=== PATIENT | female | born 1950 | race Caucasian/White ===

== ENCOUNTER 2016-04-26 09:33 | Outpatient (CLI) | payer MEDICARE, MEDICAID ==
--- NOTE | 2016-04-26 10:55 | NUR ---
Patient arrived via wheelchair for replacement of left upper arm PICC line. On arrival, PICC line dressing intact with 5 cm of PICC from site. Patient states "has been like that since they put it in." Some redness at site, patient complaining of some discomfort at site and along vein. Order for replacecment of PICC line at [facility]. Will contact Dr. Paige for clarification of facility for replacement and discuss replacing PICC with midline. Patietnt to complete MARK 05/09/16. Korin Collins RN
[2016-04-26] MEDS ORDERED: ASCORBIC ACID500 MG PO (11:44)
[2016-04-26] MEDS ORDERED: LASIX40 MG PO (11:44)
[2016-04-26] MEDS ORDERED: MULTIPLE VITAMI1 TA1 PO (11:46)
[2016-04-26] MEDS ORDERED: CLARITIN 10 MG10 MG PO (11:46)
[2016-04-26] MEDS ORDERED: ORAZINC220 ( 50 ) PO (11:46)
[2016-04-26] MEDS ORDERED: FERROUS SULFAT325 MG PO (11:47)
[2016-04-26] MEDS ORDERED: FLORANEX / LACT1 TAB PO (11:47)
[2016-04-26] MEDS ORDERED: APAP325 MG PO (11:48)
[2016-04-26] MEDS ORDERED: SCOT-TUSSI10 MG/5 ML PO (11:48)
[2016-04-26] MEDS ORDERED: HUMULIN R100 U/ML SC (11:49)
[2016-04-26] MEDS ORDERED: ZOFRAN4 MG PO (11:49)
[2016-04-26] MEDS ORDERED: GENASYME80 MG PO (11:49)
[2016-04-26] MEDS ORDERED: GLUCOPHAGE500 MG PO (11:50)
[2016-04-26] MEDS ORDERED: VANCOMYCIN 750750 MG IV (11:50)
[2016-04-26] MEDS ORDERED: DURAGESIC1 PATCH .7 TRANSDERM (11:51)
[2016-04-26] MEDS ORDERED: KRISTALOSE20 G/PKT PO (11:51)
[2016-04-26] MEDS ORDERED: HYDROCODONE-APA1 TAB PO (11:51)
[2016-04-26] MEDS ORDERED: LUMIGAN 0.01%2.5 ML (11:54)
[2016-04-26] MEDS ORDERED: UROCIT-K10 MEQ PO (11:54)
[2016-04-26] MEDS ORDERED: BIMATOPROST2.5 ML EACH EYE (11:55)
[2016-04-26] MEDS ORDERED: LANTUS INSULIN10 ML SC ×2 (11:56)
== END 2016-04-26 12:10 ==
LOC: D.OPS 09:33
DX: T85.848A Pain due to other internal prosthetic devices, implants and grafts, initial encounter (principal)

== ENCOUNTER → 2016-05-26 09:52 | Outpatient (CLI) | payer MEDICARE ==
[~2016-05-26 09:52] MED LIST: APAP325 MG PO; ASCORBIC ACID500 MG PO; BIMATOPROST2.5 ML EACH EYE; CLARITIN 10 MG10 MG PO; DURAGESIC1 PATCH .7 TRANSDERM; FERROUS SULFAT325 MG PO; FLORANEX / LACT1 TAB PO; GENASYME80 MG PO; GLUCOPHAGE500 MG PO; HUMULIN R100 U/ML SC; HYDROCODONE-APA1 TAB PO; KRISTALOSE20 G/PKT PO; LANTUS INSULIN10 ML SC; LASIX40 MG PO; LUMIGAN 0.01%2.5 ML; MULTIPLE VITAMI1 TA1 PO; ORAZINC220 ( 50 ) PO; SCOT-TUSSI10 MG/5 ML PO; UROCIT-K10 MEQ PO; VANCOMYCIN 750750 MG IV; ZOFRAN4 MG PO
== END | disposition home or self-care (01) ==
LOC: D.US 05-25 16:00
DX: M79.662 Pain in left lower leg (principal); R22.42 Localized swelling, mass and lump, left lower limb

== ENCOUNTER 2017-07-03 05:16 | Inpatient (IN) | payer MEDICARE ==
[~2017-07-03] VITALS: Ht 162.6 cm; Wt 128.4 kg
--- NOTE | ~2017-07-03 | EC ---
PATIENT:CHELLY DALEY DATE OF SERVICE: 07/03/17 SEX: F MEDICAL RECORD: [id number] DATE OF : 52 LOCATION:D.M2 D.212 AGE OF PATIENT: 66 ADMISSION DATE: 07/03/17 REFERRING PHYSICIAN: INTERPRETING PHYSICIAN: OLGA LEE MD ECHOCARDIOGRAM REPORT ECHO CHARGES 4 ECHO COMPLETE Date: 07/03 CLINICAL DIAGNOSIS: CHF ECHOCARDIOGRAPHIC MEASUREMENTS (adult normal given) AC root (d.<3.7cm) 3.1 cm LV Septum d (<1.2 cm> 1.1 cm Valve Excursion 1.9 cm LV Septum (systole) 1.5 cm Left Atria (s.<4.0cm> 3.9 cm LVPW d(<1.2cm) 1.2 cm RV (d.<2.3cm) 2.9 cm LVPW (sytole) 1.7 cm LV diastole(<5.6CM) 7.1 cm MV E-F(>70mm/sec) cm LV systole 5.2 cm LVOT Diameter 2.0 cm MV exc.(>10mm) cm Est.ejection fraction (50-75%) % DOPPLER: LVIT cm/sec A 193 cm/sec E 152 cm/sec LA cm/sec RVSP 36.0 mmHg LVOT 109 cm/sec AOP1/2T m/s Asc. Ao 183 cm/sec RVOT 92.0 cm/sec RA cm/sec PA 111 cm/sec AV Gradient Peak 13.3 mmHg AV Mean 6.9 mmHg AV Area 1.8 cm MV Gradient Peak 16.0 mmHg MV Mean 4.0 mmHg MV Area cm COMMENTS: [employer] Stock Clerk: 1 INDRA WHEATFIELD Pin Inserter Regulator: 4 Dr. Lee TAPE# PACS Pericardial Effusion N DATE OF SERVICE: PROCEDURE: Transthoracic echocardiogram. FINDINGS: 1. Left ventricle shows regional wall motion abnormalities with anterior septal hypokinesis. 2. Mildly distally dyskinetic. Overall, ejection fraction 35%. 3. The mitral valve has moderate mitral regurgitation. 4. The left atrium upper limits of normal at 3.9 cm. ECHOCARDIOGRAM REPORT [id number] CHELLY DALEY 5. The aortic valve is normal. 6. The tricuspid valve has mild tricuspid regurgitation. 7. The right atrium is normal size, normal function. 8. The right ventricle is normal size, normal function. 9. The pulmonic valve is not well visualized, otherwise is normal. 10. The pericardium is normal. CONCLUSIONS: The patient has evidence of mild hypertensive heart disease and also regional wall motion abnormality suggestive of ischemic heart disease and ischemic cardiomyopathy with ejection fraction of 35%. TRANSINT:[id number] Voice Confirmation ID: [id number] DOCUMENT ID: [id number] OLGA LEE MD at 0942 CC: [id number] DICTATION DATE: 07/04/17 0746 BANJO REPAIRER: 07/04/17 1205 ADM IN [facility] [address] [id number]
--- NOTE | ~2017-07-03 | HEMODYNAMI ---
PATIENT:CHELLY DALEY MEDICAL RECORD: [id number] : 52 LOCATION:[facility] D.[address] [facility] [id number] ADMISSION DATE: 07/03/17 Generatedon:07/05/201711:25 Patient name: CHELLY DALEY Patient #: [id number] SSN: : 1950 Date of study: 07/05/2017 Page: Of Hemodynamic Procedure Report Patient Data Patient Demographics Procedure consent was obtained First Name: CHELLY Gender: Female Last Name: EDI : 1950 [facility] Initial: CAMACHO Age: 66 year(s) Patient #: [id number] Race: Unknown Additional ID: [id number] Contact details Address: [address] [address] State: [place] City: [place] Zip code: [address] Past Medical History Allergies Allergen Reaction Date Comments Reported Other allergy 07/04/2017 KOLE Inhibitors, PCN, Insulin Other allergy 07/05/2017 KOLE Inhinitors, PCN, Insulin detmir, Insulin aspart. Admission Admission Data Admission Date: 07/03/2017 Admission Time: 14:00 Admit Source: Other Room #: D.2121 Lab Results Lab Result Date: 07/04/2017 Lab Result Time: 6:25 Biochemistry Name Units Result Min Max BUN mg/dl 39 --(----)-* 7 18 Creatinine mg/dl 2.8 --(----)-* 0.6 1.3 CBC Name Units Result Min Max Hematocrit % 23.8 *-(----)-- 42 54 Hemoglobin g/dl 8 *-(----)-- 13.5 17.5 Procedure Procedure Types Cath Procedure Diagnostic Procedure Sedation Charges Moderate Sedation up to 45 minutes PCI Procedure Coronary Stent Coronary Stent Initial x2 Procedure Description Procedure Date Procedure Date: 07/05/2017 Procedure Start Time: 9:57 Procedure End Time: 11:12 Procedure Staff Name Function Taz Lee MD Performing Physician Oscar Baker RT Monitor Ramirez Mandel RT Scrub El De Dios RN Nurse Brandie Logan RT Scrub Procedure Data Cath Procedure Fluoroscopy Diagnostic fluoroscopy Total fluoroscopy Time: time: 22.5 min 22.5 min Diagnostic fluoroscopy Total fluoroscopy dose: dose: 2309 mGy 2309 mGy Contrast Material Contrast Material Type Amount (ml) Isovue 300 101 Entry Location Entry Primary Successful Side Size Upsize Upsize Entry Closure Succes sful Closure Location (Fr) 1 (Fr) 2 (Fr) Remarks Device Remarks Femoral Right 4 Fr Sheath vein sutured in place Femoral Right 6 Fr Exoseal artery Short Estimated blood loss: 10 ml Procedure Complications No complications Procedure Medications Medication Administration Route Dosage Oxygen etCO2 Nasal cannula 2 l/min Heparin Flush Bag added to field 2 bags (1000units/500ml NS) 0.9% NaCl I.V. 100 ml/hr Fentanyl I.V. 50 mcg Versed I.V. 1 mg Heparin Bolus I.V. 8000 units Fentanyl I.V. 50 mcg Heparin Bolus I.V. 2000 units Heparin Bolus I.V. 2000 units Heparin Bolus I.V. 2000 units Versed I.V. 1 mg Plavix P.O. 300 mg Hemodynamics Rest HGB: 8 (g/dl) Heart Rate: 81 (bpm) Snapshots Pre Cath Intra NCS Post Cath Vital Signs Time Heart Resp SPO2 etCO2 NIBP (mmHg) Rhythm Pain Sedation Rate (ipm) (%) (mmHg) Status Level (bpm) 9:55:38 81 19 99 17.3 143/70(115) NSR 0 (11) 10(A) , No pain 10:00:35 76 17 98 34.6 137/69(113) NSR 0 (11) 10(A) , No pain 10:05:28 77 17 98 29.3 138/70(105) NSR 0 (11) 10(A) , No pain 10:10:23 77 16 96 33.1 129/60(104) NSR 0 (11) 9(A) , No pain 10:15:14 77 17 94 33.1 136/66(104) NSR 0 (11) 9(A) , No pain 10:20:07 77 18 95 31.6 131/67(108) NSR 0 (11) 9(A) , No pain 10:24:58 78 17 96 30.8 136/63(108) NSR 0 (11) 9(A) , No pain 10:29:50 77 16 96 28.6 136/68(108) NSR 0 (11) 9(A) , No pain 10:34:43 75 16 97 29.3 135/62(107) NSR 0 (11) 9(A) , No pain 10:39:36 74 16 97 33.1 131/58(106) NSR 0 (11) 9(A) , No pain 10:44:27 74 16 97 32.4 139/65(112) NSR 0 (11) 9(A) , No pain 10:49:20 74 16 97 32.4 140/60(112) NSR 0 (11) 9(A) , No pain 10:54:11 74 17 93 32.3 130/66(103) NSR 0 (11) 9(A) , No pain 10:59:04 73 16 98 32.3 138/64(113) NSR 0 (11) 9(A) , No pain 11:03:59 73 17 97 27.8 132/66(105) NSR 0 (11) 9(A) , No pain 11:08:52 73 16 98 22.5 134/69(115) NSR 0 (11) 9(A) , No pain Medications Time Medication Route Dose Verified Delivered Reason Notes Effectiveness by by 9:53:55 Oxygen etCO2 2 Taz El Per physician Nasal l/min Rosa De Dios RN cannula 9:54:03 Heparin Flush added 2 Taz El used for Bag to bags Rosa De Dios RN procedure (1000units/500ml field NS) 10:04:58 0.9% NaCl I.V. 100 Taz El Per physician ml/hr Rosa De Dios RN, MD 10:05:12 Fentanyl I.V. 50 Taz El for sedation mcg Rosa De Dios RN, MD 10:05:20 Versed I.V. 1 mg Taz El for sedation oRsa De Dios RN, MD 10:07:29 Heparin Bolus I.V. 8000 Taz El for units Rosa De Dios RN anticoagulation 10:10:39 Versed I.V. 1 mg Taz El for sedation Rosa De Dios RN, MD 10:10:40 Fentanyl I.V. 50 Taz El for sedation mcg Rosa De Dios RN, MD 10:26:49 Heparin Bolus I.V. 2000 Taz Gallegos for units Rosa De Dios RN anticoagulation 10:38:40 Heparin Bolus I.V. 2000 Taz Gallegos for units Rosa De Dios RN anticoagulation 10:59:35 Heparin Bolus I.V. 2000 Taz Gallegos for units Rosa De Dios RN anticoagulation 11:15:20 Plavix P.O. 300 Taz El for mg Rosa De Dios RN antiplatelet MD therapy Procedure Log Time Note 8:58:33 Informed consent obtained and on chart 8:58:36 Admit Source: Other 8:58:53 Diagnostic Cath status Elective 8:58:56 Ramirez Mandel RT(R) (CV) sent for patient. Start room use. 8:58:57 Time tracking: Regular hours (M-F 7:00 - 5:00) 8:59:00 Plan of Care:Hemodynamics will remain stable., Cardiac rhythm will remain stable., Comfort level will be maintained., Respiratory function will remain adequate., Patient/ family verbilizes understanding of procedure., Procedure tolerated without complication., Recovers from procedure without complications.. 8:59:15 H&P Date Dictated: 07/03/2017 H&P Addendum completed by physician on day of procedure. (MUST COMPLETE FOR ALL OUTPATIENTS). 9:32:07 Patient received from PCU to CCL 1 Alert and oriented. Tansferred to table in Supine position. 9:32:08 Warm blankets applied, and pete hugger turned on for patient comfort. 9:32:08 Correct patient and procedure confirmed by team. 9:32:10 ECG and BP/O2 sat monitors applied to patient. 9:32:10 Full Disclosure recording started 9:35:06 IV right antecubital D/C'd due to infiltration. 9:35:57 IV CATHETER 22g opened to sterile field. 9:36:57 Pre-procedure instructions explained to patient. 9:36:58 Pre-op teaching completed and patient verbalized understanding. 9:36:59 Family in patients room. 9:37:01 Patient NPO since Midnight. 9:37:42 Patient allergic to Other allergyACE Inhinitors, PCN, Insulin detmir, Insulin aspart. 9:47:55 Is the patient allergic to Iodine/contrast media? No. 9:47:57 Is patient on blood thinner?Yes 9:48:00 ACC The patient was administered the following blood thiners within the last 24 hours: ACCPlavix 9:48:01 Patient diabetic? Yes. 9:48:02 If diabetic: On Metformin? No 9:48:05 Previous problem with sedation/anesthesia? No ? 9:48:05 Snore? Yes 9:48:06 Sleep apnea? Yes 9:48:07 Deviated septum? No 9:48:07 Opens mouth fully? Yes 9:48:08 Sticks out tongue? Yes 9:48:10 Airway obstruction? No ? 9:48:11 Dentures? No ? 9:48:14 Pre procedure: right dorsailis pedis pulse 2+ Normal; easily identifiable; not easily obliterated 9:48:17 Lab results completed and on chart. 9:48:19 Right groin area was prepped with chlora-prep and draped in sterile fashion 9:48:24 Alarms reviewed by R. N. 9:48:24 Sharps counted by scrub and verified by R.N. 9:53:55 Oxygen 2 l/min etCO2 Nasal cannula was administered by El De Dios RN; Per physician; 9:54:03 Heparin Flush Bag (1000units/500ml NS) 2 bags added to field was administered by El De Dios RN; used for procedure; 9:54:30 Vital chart was started 9:54:31 Baseline sample Acquired. 9:54:34 Rhythm: sinus rhythm 9:54:45 Physician arrived 9:54:46 --------ALL STOP TIME OUT------ 9:54:46 Final Timeout: patient, procedure, and site verified with staff and physician. All members of the team are in agreement. 9:54:48 Right groin site verified by team. 9:54:50 Physical assessment completed. ASA score P 2 - A patient with mild systemic disease as per Taz Lee MD. 9:54:55 Sedation plan: IV Moderate Sedation Medication:Versed, Fentanyl 9:56:[address] Carrington (962039) opened to sterile field. 9:56:24 MICROPUNCTURE 4FR Cook ([id number]) opened to sterile field. 9:56:27 Tegaderm 4 x 4 (1626W) opened to sterile field. 9:56:28 ACIST Syringe (76648) opened to sterile field. 9:56:28 Bag Decanter (2001S) opened to sterile field. 9:56:29 Medline Cath Pack ([id number]) opened to sterile field. 9:56:30 DIAGNOSTIC WIRE .035 260cm J wire (135340) opened to sterile field. 9:56:32 ACIST Hand Control (64673) opened to sterile field. 9:56:32 ACIST Manifold (20093) opened to sterile field. 9:56:47 SHEATH Prelude 6Fr 0.035 (FQI-2R-66-035) opened to sterile field. 9:56:48 INFLATOR Merit BasixCompak (RW5943) opened to sterile field. 9:56:53 BMW 190cm [place] 2 J wire ([id number]) opened to sterile field. 9:57:01 COPILOT Valve Control (0765711) opened to sterile field. 9:57:43 Unable to gain IV access. Dr. Lee will gain femoral vein access for procedure. 9:57:47 Procedure started. 9:57:57 Local anesthetic to right femoral vein with Lidocaine 2% by Taz Lee MD.INITIAL ACCESS ONLY 9:57:59 Access obtained with 4Fr micropunture. 9:58:13 A 4 Fr sheath was inserted into the Right Femoral vein 9:58:45 Zero performed for pressure channel P1 9:59:45 IV Extension Set opened to sterile field. 9:59:52 Access obtained with 4Fr micropunture. 9:59:59 A 6 Fr Short sheath was inserted into the Right Femoral artery 10:04:58 0.9% NaCl 100 ml/hr I.V. was administered by El De Dios RN; Per physician; 10:05:12 Fentanyl 50 mcg I.V. was administered by El De Dios RN; for sedation; 10:05:20 Versed 1 mg I.V. was administered by El De Dios RN; for sedation; 10:05:41 GUIDE 6FR ART 4.0 catheter ([id number]) opened to sterile field. 10:05:57 6 Fr ART4 guide catheter was inserted over the wire 10:07:29 Heparin Bolus 8000 units I.V. was administered by El De Dios RN; for anticoagulation; 10:07:40 BMW wire advanced. 10:07:41 Wire advanced across lesion. 10:10:32 Place stent Inflation Number: 1 A UDAY RX 2.5 x 26 stent ([id number]) was prepped and advanced across the Dist RCA. The stent was deployed at 18 YASEMIN for 0:10 (min:sec). 10:10:39 Versed 1 mg I.V. was administered by El De Dios RN; for sedation; 10:10:40 Fentanyl 50 mcg I.V. was administered by El eD Dios RN; for sedation; 10:11:27 Stent catheter was removed intact over wire. 10:11:29 Wire removed. 10:11:59 Guide catheter removed. 10:12:20 GUIDE 6FR XBLAD 4.0 catheter ([id number]) opened to sterile field. 10:12:30 6 Fr XBLAD 4 guide catheter was inserted over the wire 10:14:32 BMW wire advanced. 10:14:49 Wire removed. unable to cross lesion. 10:15:09 FIELDER XT J 300cm guide wire ([id number]) opened to sterile field. 10:15:41 FIELDER XT J wire advanced. 10:18:15 Wire advanced across lesion. 10:22:39 Inflate balloon Inflation number: 1 A EUPHORA 1.5 x 20 Balloon ([id number]) was prepped and advanced across the Prox LAD, then inflated to 14 YASEMIN for 0:10 (min:sec). 10:23:36 Balloon removed over the wire. 10:26:49 Heparin Bolus 2000 units I.V. was administered by El De Dios RN; for anticoagulation; 10:27:39 Inflate balloon Inflation number: 2 A EUPHORA 2.0 x 20 Balloon ([id number]) was prepped and advanced across the Prox LAD, then inflated to 15 YASEMIN for 0:10 (min:sec). 10:28:14 Balloon removed over the wire. 10:33:21 The NC EUPHORA 2.5 x 12 balloon ([id number]) was advanced and then removed because of failure to cross lesion 10:34:23 CHOICE PT Extra Support J 300cm guide wire ([id number]) opened to sterile field. 10:35:59 EMERGE BALOON INSERTED OVER THE WIRE, FIELDER WIRE REMOVED. 10:38:40 Heparin Bolus 2000 units I.V. was administered by El De Dios RN; for anticoagulation; 10:41:13 IRON MAN wire advanced. 10:41:16 Wire advanced across lesion. 10:41:54 The EMERGE OTW 1.5 x 20 balloon ([id number]) was advanced and then removed because in body, not inflated 10:46:09 Inflate balloon Inflation number: 3 A EMERGE OTW 2.0 x 20 balloon ([id number]) was prepped and advanced across the Prox LAD, then inflated to 15 YASEMIN for 0:10 (min:sec). 10:47:02 Balloon removed over the wire. 10:51:17 Place stent Inflation Number: 4 A UDAY RX 2.0 x 12 stent ([id number]) was prepped and advanced across the Prox LAD. The stent was deployed at 20 YASEMIN for 0:10 (min:sec). 10:51:35 Inflation number: 5 The stent balloon was then re-inflated across the Prox LAD to 20 YASEMIN for 0:10 (min:sec). 10:52:06 Stent catheter was removed intact over wire. 10:54:04 Inflate balloon Inflation number: 6 A NC EUPHORA 2.5 x 12 balloon ([id number]) was prepped and advanced across the Prox LAD, then inflated to 17 YASEMIN for 0:10 (min:sec). 10:54:43 Inflation number: 7 The NC EUPHORA 2.5 x 12 balloon ([id number]) was reinflated across the Prox LAD, to 24 YASEMIN for 0:10 (min:sec). 10:55:15 Balloon removed over the wire. 10:59:35 Heparin Bolus 2000 units I.V. was administered by El De Dios RN; for anticoagulation; 11:00:46 Inflate balloon Inflation number: 8 A NC EUPHORA 3.0 x 12 balloon ([id number]) was prepped and advanced across the Prox LAD, then inflated to 18 YASEMIN for 0:10 (min:sec). 11:01:13 Balloon removed over the wire. 11:03:37 Place stent Inflation Number: 9 A UDAY RX 2.0 x 8 stent ([id number]) was prepped and advanced across the Prox LAD. The stent was deployed at 18 YASEMIN for 0:10 (min:sec). 11:04:15 Stent catheter was removed intact over wire. 11:04:20 Wire removed. 11:04:33 Guide catheter removed. 11:04:51 EXOSEAL 6Fr (EX600) opened to sterile field. 11:05:02 Sheath removed intact; hemostasis achieved with Exoseal to the Right Femoral artery. 11:05:23 Procedure ended.(Physican Out) 11:07:40 Fluoroscopy time 22.50 minutes. 11::44 Fluoroscopy dose: 2309 mGy 11:07:44 Flurop Dose total: 2309 11:07:59 Contrast amount:Isovue 300 101ml. 11:08:00 Sharps counted by scrub and verified by R.N. 11:08:02 Insertion/operative site no bleeding no hematoma. 11:08:05 Post-op/insertion site Right Femoral artery dressed using a 4 x 4 and Tegaderm. 11:08:12 Post right femoral artery:stable, soft, clean and dry 11:08:14 Post Procedure Pulses reassessed and unchanged 11:08:17 Post-procedure physical assessment completed. ASA score P 2 - A patient with mild systemic disease as per Taz Lee MD. 11:08:19 Post procedure rhythm: unchanged. 11:08:29 Estimated blood loss: 10 ml 11:08:31 Post procedure instruction explained to patient.Patient verbalizes understanding. 11:08:32 Patient needs reinforcement of post procedure teaching. 11:10:49 Procedure type changed to Cath procedure, Diagnostic procedure, Sedation Charges, Moderate Sedation up to 45 minutes, PCI procedure, Coronary Stent, Coronary Stent Initial x2 11:12:07 Procedure and supply charges have been captured, reviewed, submitted and are correct. 11:12:09 Procedure Complication : No complications 11:12:[address] to the Right Femoral vein. 11:12:41 Vital chart was stopped 11:12:42 See physician's report for complete and final results. 11:12:44 Report given to PCU. 11:12:47 Patient transfered to PCU with Stretcher. 11:12:49 Procedure ended. 11:12:49 Full Disclosure recording stopped 11:15:20 Plavix 300 mg P.O. was administered by El De Dios RN; for antiplatelet therapy; 11:24:04 FEMSTOP Gold (G36364) opened to sterile field. 11:24:08 Femstop placed over the right femoral artery at 90 mmHg. Hemostasis achieved. 11:24:27 End room use (Document Last) Intervention Summary Intervention Notes Time ActionType Lesion and Equipment Used Action# Pressure Duration Attributes 10:10:32 Place stent Dist RCA UDAY RX 2.5 x 1 18 00:10 26 stent ([id number]) 10:22:39 Inflate Prox LAD EUPHORA 1.5 x 1 14 00:10 balloon 20 Balloon ([id number]) 10:27:39 Inflate Prox LAD EUPHORA 2.0 x 2 15 00:10 balloon 20 Balloon ([id number]) 10:33:21 Discard NC EUPHORA 2.5 Balloon x 12 balloon ([id number]) 10:41:54 Discard EMERGE OTW 1.5 Balloon x 20 balloon ([id number]) 10:46:09 Inflate Prox LAD EMERGE OTW 2.0 3 15 00:10 balloon x 20 balloon ([id number]) 10:51:17 Place stent Prox LAD UDAY RX 2.0 x 4 20 00:10 12 stent ([id number]) 10:51:35 Reinflate Prox LAD UDAY RX 2.0 x 5 20 00:10 stent 12 stent balloon ([id number]) 10:54:04 Inflate Prox LAD NC EUPHORA 2.5 6 17 00:10 balloon x 12 balloon ([id number]) 10:54:43 Reinflate Prox LAD NC EUPHORA 2.5 7 24 00:10 balloon x 12 balloon ([id number]) 11:00:46 Inflate Prox LAD NC EUPHORA 3.0 8 18 00:10 balloon x 12 balloon ([id number]) 11:03:37 Place stent Prox LAD UDAY RX 2.0 x 9 18 00:10 8 stent ([id number]) Device Usage Item Name Manufacture Quantity Catalog Number Hospital Part Current Minimal Lot# / Charge Number Stock Stock Serial# Code IV CATHETER 22g B. [place] 1 [id number] 393002 618570 2868[address] Carrington 1 874745 255656 919065 055218 5 Carrington (103162) MICROPUNCTURE [employer] [facility] 1 T97992 902654 945708 687901 5 4FR Cook (C01209) Tegaderm 4 x 4 3M 1 1626W 380620 983111 331581 5 (1626W) ACIST Syringe Acist 1 73132 052319 573848 605823 20 (01199) Medical Systems Inc Bag Decanter Microtek 1 2001S 430714 62581 305504 5 (2001S) Medical Inc. Medline Cath Cardinal 1 [id number] 253345 62811 349994 5 Pack Health ([id number]) DIAGNOSTIC WIRE [facility] Carrington 1 032878 485393 396668 587628 30 .035 260cm J wire (281908) ACIST Hand Acist 1 76983 562160 111193 536238 5 Control (89845) Medical Systems Inc ACIST Manifold Acist 1 03057 839851 558510 774199 5 (34424) Medical Systems Inc SHEATH Prelude Merit 1 YXC-0A-05-35 083970 0098728 543396 5 6Fr 0.035 Medical (LUT-1N-37-035) INFLATOR Merit Merit 1 DT5243 339315 663759 666649 15 BasIbexis TechnologiesvaMedical Envelope Medical (ZZ1887) BMW 190cm Crawley 1 [id number] 153284 73151 587526 5 [place] 2 J Vascular wire ([id number]) COPILOT Valve Crawley 1 0216297 613680 643598 742235 5 Control Vascular (5546484) IV Extension Hospira 1 84372-39 570676 90079 335046 5 Set GUIDE 6FR ART Hurst 1 [id number] 976285 832747 510679 0 4.0 catheter Deehubs ([id number]) UDAY RX 2.5 x Medtronic 1 [id number] 789720 4388568 564784 5 [id number] 26 stent ([id number]) GUIDE 6FR XBLAD Cardinal 1 70438392 362808 155648 214618 3 4.0 catheter Eyebrid Blaze (71299867) FIELDER XT J Crawley 1 [id number] 449260 634039 354882 5 300cm guide Vascular wire ([id number]) EUPHORA 1.5 x Medtronic 1 [id number] 530882 391046 516693 5 [id number] 20 Balloon ([id number]) EUPHORA 2.0 x Medtronic 1 [id number] 376298 822535 331007 5 [id number] 20 Balloon ([id number]) NC EUPHORA 2.5 Medtronic 1 [id number] 709533 559606 142373 1 [id number] x 12 balloon ([id number]) CHOICE PT Extra Hurst 1 [id number] 891498 793204 678644 5 Support J 300cm Scientific guide wire (0643041Q3) EMERGE OTW 1.5 Hurst 1 [id number] 011568 711232 966982 5 50112713 x 20 balloon Scientific ([id number]) EMERGE OTW 2.0 Hurst 1 [id number] 904805 212125 311761 5 20420238 x 20 balloon Scientific ([id number]) UDAY RX 2.0 x Medtronic 1 [id number] 498570 6562553 439115 5 [id number] 12 stent ([id number]) NC EUPHORA 3.0 Medtronic 1 [id number] 431213 824419 652504 1 [id number] x 12 balloon ([id number]) UDAY RX 2.0 x 8 Medtronic 1 [id number] 173374 7298747 813378 5 [id number] stent ([id number]) EXOSEAL 6Fr Cardinal 1 EX600 662154 697061 952312 10 (EX600) Health FEMSTOP Gold [facility] Carrington 1 [id number] 361855 059599 267255 5 ([id number]) Signature Audit [place] Stage Time Signature Unsigned Intra-Procedure 07/05/2017 Oscar Baker 11:25:12 AM RT(R) Signatures Monitor : Oscar Baker RT Signature : Date : Time : [facility] [address] [place] [address]
--- NOTE | ~2017-07-03 | HEMODYNAMI ---
PATIENT:CHELLY DALEY MEDICAL RECORD: [id number] : 52 LOCATION:[facility] D.2121 ADMISSION DATE: 07/03/17 Generatedon:07/04/201712:48 Patient name: CHELLY DALEY Patient #: [id number] SSN: : 1950 Date of study: 07/04/2017 Page: Of Hemodynamic Procedure Report Patient Data Patient Demographics Procedure consent was obtained First Name: CHELLY Gender: Female Last Name: EDI : 1950 [facility] Initial: CAMACHO Age: 66 year(s) Patient #: [id number] Race: Unknown Additional ID: [id number] Contact details Address: [address] [address] State: [place] City: [place] Zip code: [address] Past Medical History Allergies Allergen Reaction Date Comments Reported Other allergy 07/04/2017 KOLE Inhibitors, PCN, Insulin Admission Admission Data Admission Date: 07/03/2017 Admission Time: 14:00 Room #: 2121 Lab Results Lab Result Date: 07/04/2017 Lab Result Time: 6:25 Biochemistry Name Units Result Min Max BUN mg/dl 39 --(----)-* 7 18 Creatinine mg/dl 2.8 --(----)-* 0.6 1.3 CBC Name Units Result Min Max Hematocrit % 23.8 *-(----)-- 42 54 Hemoglobin g/dl 8 *-(----)-- 13.5 17.5 Procedure Procedure Types Cath Procedure Diagnostic Procedure LHC LH w/Coronaries Sedation Charges Moderate Sedation up to 15 minutes Procedure Description Procedure Date Procedure Date: 07/04/2017 Procedure Start Time: 12:34 Procedure End Time: 12:48 Procedure Staff Name Function Taz Lee MD Performing Physician Oscar Baker RT Monitor Dave Kirby RN Nurse Brandie Logan RT Scrub Procedure Data Cath Procedure Fluoroscopy Diagnostic fluoroscopy Total fluoroscopy Time: 3.3 time: 3.3 min min Diagnostic fluoroscopy Total fluoroscopy dose: 749 dose: 749 mGy mGy Contrast Material Contrast Material Type Amount (ml) Isovue 300 49 Entry Location Entry Primary Successful Side Size Upsize Upsize Entry Closure Garcia ccessful Closure Location (Fr) 1 (Fr) 2 (Fr) Remarks Device Remarks Radial Right 6 Fr Mechanical artery Short Compression Estimated blood loss: 5 ml Diagnostic catheters Device Type Used For End Catheter Placement DIAGNOSTIC Jose Antonio 110cm Procedure 5Fr catheter ([id number]) Procedure Complications No complications Procedure Medications Medication Administration Route Dosage 0.9% NaCl I.V. 100 ml/hr Oxygen etCO2 Nasal cannula 2 l/min Heparin Flush Bag added to field 2 bags (1000units/500ml NS) Radial Cocktail added to field 1 syringe (Verapomil 2mg/Nitro 400mcg/Heparin 1500units) Versed I.V. 2 mg Fentanyl I.V. 25 mcg Radial Cocktail I.A. 1 syringe (Verapomil 2mg/Nitro 400mcg/Heparin 1500units) Hemodynamics Rest HGB: 8 (g/dl) Heart Rate: 85 (bpm) Pressure Samples Time Site Value (mmHg) Purpose Heart Use Rate(bpm) 12:38 LV 120/8,20 EDP 94 Gradients Valve Time Site Site Mean SEP/DFP Peak To Heart Use 1 2 (mmHg) (sec/min) Peak Rate (mmHg) (bpm) Aortic 12:38 LV AO 100 Snapshots Pre Cath Intra NCS Post Cath Vital Signs Time Heart Resp SPO2 etCO2 NIBP (mmHg) Rhythm Pain Sedation Rate (ipm) (%) (mmHg) Status Level (bpm) 12:12:19 85 18 97 27.8 138/69(103) NSR 0 (11) 10(A) , No pain 12:17:18 83 27 96 30 133/68(97) NSR 0 (11) 10(A) , No pain 12:22:15 86 22 96 30.8 134/66(96) NSR 0 (11) 10(A) , No pain 12:27:12 85 18 96 31.5 138/67(101) NSR 0 (11) 10(A) , No pain 12:32:09 83 17 96 31.5 139/72(115) NSR 0 (11) 10(A) , No pain 12:37:04 93 25 97 27 120/65(86) NSR 0 (11) 10(A) , No pain 12:41:57 86 26 97 28.5 127/66(96) NSR 0 (11) 10(A) , No pain 12:46:51 83 23 96 35.3 127/64(99) NSR 0 (11) 10(A) , No pain Medications Time Medication Route Dose Verified Delivered Reason Notes Effectiveness by by 12:15:24 0.9% NaCl I.V. 100 Dave Dave Per ml/hr Kofi Kirby physician RN RN 12:16:34 Oxygen etCO2 2 l/min Dave Dave Per Nasal Kofi Kirby physician cannula RN RN 12:16:45 Heparin Flush added 2 bags Dave Dave used for Bag to Lorigan Kofi procedure (1000units/500ml field RN RN NS) 12:17:11 Radial Cocktail added 1 Dave Dave used for (Verapomil to syringe Summerigan Kofi procedure 2mg/Nitro field RN RN 400mcg/Heparin 1500units) 12:26:52 Versed I.V. 2 mg Dave Dave for sedation Kofi Kirby RN RN 12:27:00 Fentanyl I.V. 25 mcg Dave Dave for sedation Kofi Kirby RN RN 12:36:13 Radial Cocktail I.A. 1 Dave Taz for (Verapomil syringe Kofi Lee MD vasodilation 2mg/Nitro RN 400mcg/Heparin 1500units) Procedure Log Time Note 11:53:49 Diagnostic Cath status Elective 11:53:50 Time tracking: Regular hours (M-F 7:00 - 5:00) 11:53:54 Plan of Care:Hemodynamics will remain stable., Cardiac rhythm will remain stable., Comfort level will be maintained., Respiratory function will remain adequate., Patient/ family verbilizes understanding of procedure., Procedure tolerated without complication., Recovers from procedure without complications.. 11:54:00 Brandie Logan RT(R) sent for patient. Start room use. 11:56:07 H&P Date Dictated: 07/03/2017 Within 30 days and on chart.. 11:56:45 Lab Result : BUN 39 mg/dl 11:56:45 Lab Result : Creatinine 2.8 mg/dl 11:56:45 Lab Result : Hemoglobin 8 g/dl 11:56:45 Lab Result : Hematocrit 23.8 % 12:01:04 Patient received from Med II to CCL 1 Alert and oriented. Tansferred to table in Supine position. 12:01:05 Warm blankets applied, and pete hugger turned on for patient comfort. 12:01:06 Correct patient and procedure confirmed by team. 12:01:08 Signed procedure consent form obtained from patient. 12:01:08 ECG and BP/O2 sat monitors applied to patient. 12:01:09 Pre-procedure instructions explained to patient. 12:01:10 Pre-op teaching completed and patient verbalized understanding. 12:01:13 Family in waiting room. 12:01:14 Patient NPO since Midnight. 12:01:34 Patient allergic to Other allergyACE Inhibitors, PCN, Insulin 12:11:07 Vital chart was started 12:15:24 0.9% NaCl 100 ml/hr I.V. was administered by Dave Kirby RN; Per physician; 12:16:34 Oxygen 2 l/min etCO2 Nasal cannula was administered by Dave Kirby RN; Per physician; 12:16:45 Heparin Flush Bag (1000units/500ml NS) 2 bags added to field was administered by Dave Kirby RN; used for procedure; 12:17:11 Radial Cocktail (Verapomil 2mg/Nitro 400mcg/Heparin 1500units) 1 syringe added to field was administered by Dave Kirby RN; used for procedure; 12:20:24 Baseline sample Acquired. 12:23:16 Rhythm: sinus rhythm 12:23:20 Full Disclosure recording started 12:23:24 Is the patient allergic to Iodine/contrast media? No. 12:23:26 Is patient on blood thinner?Yes 12:23:28 ACC The patient was administered the following blood thiners within the last 24 hours: ACCPlavix 12:23:31 Patient diabetic? Yes. 12:23:33 If diabetic: On Metformin? No 12:23:36 Previous problem with sedation/anesthesia? No + 12:23:38 Snore? No 12:23:39 Sleep apnea? No 12:23:41 Deviated septum? No 12:23:42 Opens mouth fully? Yes 12:23:43 Sticks out tongue? Yes 12:23:45 Airway obstruction? No ? 12:23:49 Dentures? No ? 12:23:53 Modified Shawn's test Ulnar < 7 seconds 12:23:55 Patient pain scale 0/10 .. 12:24:01 IV patent on arrival in right antecubital with 0.9% NaCl at [facility]. 12:24:03 Lab results completed and on chart. 12:24:06 Use device set Radial Dx or PCI 12:24:07 ACIST Syringe (34392) opened to sterile field. 12:24:08 Medline Cath Pack ([id number]) opened to sterile field. 12:24:10 ACIST Hand Control (92129) opened to sterile field. 12:24:11 ACIST Manifold (50384) opened to sterile field. 12:24:11 Tegaderm 4 x 4 (1626W) opened to sterile field. 12:24:13 Bag Decanter (2002S) opened to sterile field. 12:24:14 MBrace Wrist Support ([id number]) opened to sterile field. 12:24:17 DIAGNOSTIC WIRE .035 260cm J wire (419532) opened to sterile field. 12:24:19 SHEATH 6Fr Prelude Radial ([id number]) opened to sterile field. 12:24:26 Physician arrived 12::27 --------ALL STOP TIME OUT------ 12::27 Final Timeout: patient, procedure, and site verified with staff and physician. All members of the team are in agreement. 12:24:29 Right Radial & Right Groin site verified by team. 12:24:32 Physical assessment completed. ASA score P 2 - A patient with mild systemic disease as per Taz Lee MD. 12:24:36 Sedation plan: IV Moderate Sedation Medication:Versed, Fentanyl 12:25:56 Zero performed for pressure channel P1 12:26:04 Zero performed for pressure channel P1 12:26:52 Versed 2 mg I.V. was administered by Dave Kirby RN; for sedation; 12:27:00 Fentanyl 25 mcg I.V. was administered by Dave Kirby RN; for sedation; 12:34:45 Procedure started. 12:34:49 Local anesthetic to right radial artery with Lidocaine 2% by Taz Lee MD.INITIAL ACCESS ONLY 12:34:59 A 6 Fr Short sheath was inserted into the Right Radial artery 12:36:13 Radial Cocktail (Verapomil 2mg/Nitro 400mcg/Heparin 1500units) 1 syringe I.A. was administered by Taz Lee MD; for vasodilation; 12:36:37 A DIAGNOSTIC Jose Antonio 110cm 5Fr catheter ([id number]) was advanced over the wire and used for Procedure. 12:38:11 LV hemodynamics recorded. 12:38:13 Injector settings: Ml/sec: 12, Volume: 8, 12:38:16 LV gram done using LANIER 12:38:51 EF : 30 % 12:39:10 RCA angiography performed. 12:41:23 LCA angiography performed. 12:42:52 Catheter removed. 12:43:11 Sheath removed intact; hemostasis achieved with Mechanical Compression to the Right Radial artery. 12:43:13 Procedure ended.(Physican Out) 12:43:21 TR BAND Large ([id number]) opened to sterile field. 12:44:05 Fluoroscopy time 03.30 minutes. 12:44:09 Flurop Dose total: 749 12:44:09 Fluoroscopy dose: 749 mGy 12:45:14 Contrast amount:Isovue 300 49ml. 12:46:06 Sharps counted by scrub and verified by R.N. 12:46:08 TR band inflated with 12cc of air. 12:46:09 Insertion/operative site no bleeding no hematoma. 12:46:10 Post Procedure Pulses reassessed and unchanged 12:46:15 Post-procedure physical assessment completed. ASA score P 2 - A patient with mild systemic disease as per Taz Lee MD. 12:46:17 Post procedure rhythm: unchanged. 12:46:20 Estimated blood loss: 5 ml 12:46:21 Post procedure instruction explained to patient.Patient verbalizes understanding. 12:46:21 Patient needs reinforcement of post procedure teaching. 12:47:16 Procedure type changed to Cath procedure, Diagnostic procedure, LHC, LHC w/Coronaries, Sedation Charges, Moderate Sedation up to 15 minutes 12:48:02 Procedure and supply charges have been captured, reviewed, submitted and are correct. 12:48:08 Procedure Complication : No complications 12:48:11 Vital chart was stopped 12:48:14 See physician's report for complete and final results. 12:48:17 Report given to PCU. 12:48:19 Patient transfered to PCU with Stretcher. 12:48:25 Procedure ended. 12:48:25 Full Disclosure recording stopped 12:48:30 End room use (Document Last) Device Usage Item Name Manufacture Quantity Catalog Number Hospital Part Current M inimal Lot# / Charge Number Stock Stock Serial# Code ACIST Syringe Acist 1 55755 706980 243419 108442 2 0 (07927) [employer] Medline Cath Cardinal 1 [id number] 140332 45507 [id number] 5 Pack Health ([id number]) ACIST Hand Acist 1 75191 692906 080819 085052 5 Control (10643) [employer] ACIST Manifold Acist 1 20341 883448 689759 070341 5 (74025) [employer] Inc Tegaderm 4 x 4 3M 1 1626W 104892 610180 118653 5 (1626W) Bag Decanter Microtek 1 2002S 487343 99802 751758 5 (2002S) Medical Inc. MBrace Wrist Advanced 1 [id number] 847401 15048 931831 5 Support Vascular ([id number]) Dynamics DIAGNOSTIC WIRE [facility] [place] 1 261335 695584 008372 888853 3 0 .035 260cm J wire (472523) SHEATH 6Fr Merit 1 [id number] 021256 237100 847710 5 Prelude Radial Medical ([id number]) DIAGNOSTIC Terumo 1 40-3447 596242 199243 953372 5 Jose Antonio 110cm 5Fr catheter (533693) TR BAND Large Terumo 1 [id number] 695310 403326 713033 4 0 ([id number]) Signature Audit [place] Stage Time Signature Unsigned Intra-Procedure 07/04/2017 Oscar Baker 12:48:53 PM RT(R) Signatures Monitor : Oscar Baker RT Signature : Date : Time : [facility] [address] [facility] [place] [address]
--- NOTE | ~2017-07-03 | OP ---
PATIENT NAME: CHELLY DALEY MEDICAL RECORD: [id number] :52 LOCATION:D.M2 D.2121 ADMISSION DATE:07/03/17 SURGEON: TAZ LEE MD DATE OF OPERATION: 07/04/2017 PROCEDURE: Left heart catheterization, LV gram, coronary angiogram. SHIPPING SUPERVISOR: Taz Lee MD PROCEDURE IN DETAIL: The patient was brought to cardiac catheterization lab in stable condition. Both groins and the right wrist was sterilely prepped and draped. The patient had a 6-Khmer sheath placed in right radial artery in retrograde fashion using modified Seldinger technique. We then selectively engaged the left coronary artery, the left ventricular cavity, and the right coronary artery respectively. The procedure was then terminated successfully. FINDINGS: 1. Right coronary artery has a distal 99% stenosis, a dominant vessel. 2. The left main has mild plaquing, mild calcification. 3. The LAD is 99% stenosed, small vessel distally. 4. The first diagonal high diagonal has a 99% stenosis. 5. The circumflex has a mid 50% stenosis. The first obtuse marginal branch divides into a superior and inferior branch. The inferior branch has an ostial 80% stenosis. HEMODYNAMICS: Left ventricular ejection fraction is 35%. There is inferior apical dyskinesis and mild anterior septal hypokinesis. EDP was mildly elevated at 22 mmHg. There is no significant mitral regurgitation. There is no gradient across the aortic valve. 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 RECOMMENDATIONS: Consider coronary artery bypass grafting in this diabetic patient with an ischemic cardiomyopathy and multivessel disease. She is felt to be too high risk. It is possible, we would consider angioplasty and stenting in a multivessel fashion. TRANSINT:[id number] Voice Confirmation ID: [id number] DOCUMENT ID: [id number] TAZ LEE MD at 0942 CC: [id number] DICTATION DATE: 07/04/17 1256 RAILWAY TRACK WORKER: 07/04/17 1424 ADM IN [place] [address] [place] [address]
[2017-07-03] MEDS ORDERED: GLIPIZIDE10 MG PO (05:26)
[2017-07-03] MEDS ORDERED: MAG-OX 400 MG400 MG PO (05:26)
[2017-07-03] MEDS ORDERED: XANAX0.25 MG PO (05:27)
[2017-07-03] MEDS ORDERED: NEURONTIN 300300 MG PO (05:30)
[2017-07-03 05:38] VITALS: BP 125/94; BMI 50.8
[2017-07-03 08:32] LABS: BASOPHILS 0.2 % (0-2); EOSINOPHILS 2.6 % (0-7); HEMOGLOBIN 8.7 g/dL (12-16); IMMATURE GRANULOCYTES 0.3 % (0-5); LYMPHOCYTES 23.8 % (15-50); MCH 30.4 pg (26.0-34.0); MCHC 34.8 g/dL (31.0-37.0); MCV 87.4 fL (80.0-100.0); MEAN PLATELET VOLUME 9.6 fL (7.4-10.4); MONOCYTES 5.3 % (2-11); NEUTROPHILS 67.8 % (40-80); RBC 2.86 10x6/uL (4.00-5.40); RDW 12.8 % (11.5-14.5); WBC 6.6 10x3/uL (4.8-10.8)
[2017-07-03 08:33] LABS: PLATELET COUNT 159 10x3/uL (130-400)
[2017-07-03 09:04] LABS: ALKALINE PHOSPHATASE 94 U/L (46-116); ALT (SGPT) 16 U/L (10-68); BILIRUBIN - TOTAL 0.58 mg/dL (0.2-1.3); CALC OSMOLALITY 288 mosm/kg (275-300); CALCIUM 8.9 mg/dL (8.5-10.1); CARBON DIOXIDE 23.7 mmol/L (21.0-32.0); CHLORIDE - SERUM 104 mmol/L (98-107); CKMB 3.2 U/L (0.0-3.6); CREATINE KINASE 88 UL (21-215); CREATININE - SERUM 2.4 mg/dL (0.6-1.3); GLUCOSE 113 mg/dL (74-106); POTASSIUM - SERUM 3.8 mmol/L (3.5-5.1); PROTEIN - SERUM 7.9 g/dL (6.4-8.2); SODIUM 140 mmol/L (136-145); UREA NITROGEN 38 mg/dL (7-18); eGFR NON AFRICAN AMERICAN 21 mL/min (90-120)
[2017-07-03 09:13] LABS: TROPONIN-I 1.594 ng/mL (0.000-0.060)
[2017-07-03 09:18] VITALS: BP 129/58
[2017-07-03 11:24] VITALS: BP 119/47
[2017-07-03 14:00] VITALS: BMI 50.6
[2017-07-03 16:13] LABS: % SATURATION 20 % (15-55); IRON 44 ug/dl (35-150); TOTAL IRON BIND CAPACITY 210 ug/dl (260-445); UNSAT IRON BIND CAPACITY 166 ug/dl (150-375)
[2017-07-03 16:15] VITALS: BP 107/69
[2017-07-03 17:41] LABS: CREATININE - URINE 46.9 mg/dL (30-125); PRO/CRE RATIO URINE 0.6 mg/g; PROTEIN - URINE 29.6 mg/dL (0.0-11.9)
[2017-07-03 17:58] LABS: APPEARANCE CLEAR (CLEAR); BILIRUBIN NEGATIVE (NEGATIVE); COLOR YELLOW (YELLOW); GLUCOSE NEGATIVE (NEGATIVE); KETONE NEGATIVE (NEGATIVE); NITRITE NEGATIVE (NEGATIVE); PROTEIN NEGATIVE (NEGATIVE); UROBILINOGEN NORMAL (NORMAL)
[2017-07-03 18:06] LABS: BACTERIA MODERATE /hpf (NONE SEEN); EPITHELIAL CELLS 0-5 /hpf (0-5); RED CELLS - URINE OCC /hpf (0-5)
[2017-07-03 20:49] VITALS: BP 133/50
[2017-07-04 01:03] VITALS: BP 135/55
[2017-07-04 05:18] VITALS: BP 145/57
[2017-07-04 07:08] LABS: BASOPHILS 0.2 % (0-2); EOSINOPHILS 2.7 % (0-7); HEMATOCRIT 23.8 % (36.0-48.0); IMMATURE GRANULOCYTES 0.2 % (0-5); LYMPHOCYTES 21.5 % (15-50); MCH 30.2 pg (26.0-34.0); MCHC 33.6 g/dL (31.0-37.0); MEAN PLATELET VOLUME 9.9 fL (7.4-10.4); MONOCYTES 5.2 % (2-11); NEUTROPHILS 70.2 % (40-80); PLATELET COUNT 153 10x3/uL (130-400); RBC 2.65 10x6/uL (4.00-5.40); RDW 13.1 % (11.5-14.5)
[2017-07-04 07:13] LABS: MCV 89.8 fL (80.0-100.0); WBC 4.8 10x3/uL (4.8-10.8)
[2017-07-04 07:30] LABS: ALBUMIN 2.9 g/dL (3.4-5.0); BILIRUBIN - TOTAL 0.5 mg/dL (0.2-1.3); CALCIUM 8.8 mg/dL (8.5-10.1); CARBON DIOXIDE 24.7 mmol/L (21.0-32.0); CREATININE - SERUM 2.8 mg/dL (0.6-1.3); POTASSIUM - SERUM 3.7 mmol/L (3.5-5.1); PROTEIN - SERUM 7.4 g/dL (6.4-8.2)
[2017-07-04 10:29] VITALS: BP 140/60
[2017-07-04 11:42] VITALS: BP 133/57
[2017-07-04 14:55] VITALS: Ht 162.6 cm; Wt 128.4 kg
[2017-07-04 15:46] VITALS: BP 126/59
[2017-07-04 20:00] VITALS: BP 116/42
[2017-07-05] VITALS: BP 123/55
[2017-07-05 04:00] VITALS: BP 121/47
[2017-07-05 06:12] LABS: BASOPHILS 0.2 % (0-2); EOSINOPHILS 3.5 % (0-7); HEMATOCRIT 24.8 % (36.0-48.0); HEMOGLOBIN 8.2 g/dL (12-16); IMMATURE GRANULOCYTES 0.2 % (0-5); LYMPHOCYTES 29.1 % (15-50); MCH 30.1 pg (26.0-34.0); MCHC 33.1 g/dL (31.0-37.0); MCV 91.2 fL (80.0-100.0); MONOCYTES 5.7 % (2-11); NEUTROPHILS 61.3 % (40-80); PLATELET COUNT 150 10x3/uL (130-400); RBC 2.72 10x6/uL (4.00-5.40); RDW 13.3 % (11.5-14.5); WBC 5.6 10x3/uL (4.8-10.8)
[2017-07-05 06:27] LABS: % SATURATION 35 % (15-55); IRON 76 ug/dl (35-150); TOTAL IRON BIND CAPACITY 215 ug/dl (260-445); UNSAT IRON BIND CAPACITY 139 ug/dl (150-375)
[2017-07-05 06:40] LABS: ANION GAP 15.3 mmol/L (8-16); BILIRUBIN - TOTAL 0.5 mg/dL (0.2-1.3); CALCIUM 8.5 mg/dL (8.5-10.1); CARBON DIOXIDE 24.4 mmol/L (21.0-32.0); CREATININE - SERUM 2.7 mg/dL (0.6-1.3); POTASSIUM - SERUM 3.7 mmol/L (3.5-5.1); PROTEIN - SERUM 7.5 g/dL (6.4-8.2)
[2017-07-05 07:31] LABS: FOLATE (FOLIC ACID) - SERUM >20.0 ng/mL (>3.0)
[2017-07-05 14:24] LABS: SPE - A/G RATIO 0.8 (0.7-1.7); SPE - ALPHA-1 GLOBULIN 0.2 g/dL (0.0-0.4); SPE - GAMMA GLOBULIN 1.4 g/dL (0.4-1.8); SPE - M-SPIKE Not Observed g/dL (Not Observed); SPE - TOTAL PROTEIN 6.6 g/dL (6.0-8.5)
[2017-07-06 04:00] VITALS: BP 112/49
[2017-07-06 05:52] LABS: BASOPHILS 0.2 % (0-2); HEMOGLOBIN 7.9 g/dL (12-16); IMMATURE GRANULOCYTES 0.4 % (0-5); LYMPHOCYTES 22.9 % (15-50); MCH 30.2 pg (26.0-34.0); MCHC 32.9 g/dL (31.0-37.0); MCV 91.6 fL (80.0-100.0); MEAN PLATELET VOLUME 9.7 fL (7.4-10.4); MONOCYTES 5.9 % (2-11); NEUTROPHILS 66.6 % (40-80); PLATELET COUNT 155 10x3/uL (130-400); RBC 2.62 10x6/uL (4.00-5.40); RDW 13.3 % (11.5-14.5); WBC 5.5 10x3/uL (4.8-10.8)
[2017-07-06 06:16] LABS: ALBUMIN 2.8 g/dL (3.4-5.0); ANION GAP 14.4 mmol/L (8-16); BILIRUBIN - TOTAL 0.6 mg/dL (0.2-1.3); CALCIUM 8.3 mg/dL (8.5-10.1); CARBON DIOXIDE 23.1 mmol/L (21.0-32.0); CREATININE - SERUM 2.7 mg/dL (0.6-1.3); POTASSIUM - SERUM 3.5 mmol/L (3.5-5.1); PROTEIN - SERUM 7.2 g/dL (6.4-8.2)
[2017-07-06 08:44] VITALS: BP 134/52
[2017-07-06 11:50] VITALS: BP 117/51
[2017-07-06 16:44] VITALS: BP 119/61
[2017-07-06 21:06] VITALS: BP 126/50
[2017-07-07 01:46] VITALS: BP 117/49
[2017-07-07 04:56] LABS: BASOPHILS 0.1 % (0-2); EOSINOPHILS 4.7 % (0-7); HEMATOCRIT 24.9 % (36.0-48.0); HEMOGLOBIN 8.3 g/dL (12-16); IMMATURE GRANULOCYTES 0.3 % (0-5); LYMPHOCYTES 20.9 % (15-50); MCH 30.1 pg (26.0-34.0); MCHC 33.3 g/dL (31.0-37.0); MCV 90.2 fL (80.0-100.0); MEAN PLATELET VOLUME 9.5 fL (7.4-10.4); MONOCYTES 5.7 % (2-11); NEUTROPHILS 68.3 % (40-80); PLATELET COUNT 140 10x3/uL (130-400); RBC 2.76 10x6/uL (4.00-5.40); RDW 13.2 % (11.5-14.5)
[2017-07-07 05:06] LABS: ALBUMIN 2.9 g/dL (3.4-5.0); ANION GAP 14.4 mmol/L (8-16); BILIRUBIN - TOTAL 0.5 mg/dL (0.2-1.3); CALCIUM 8.4 mg/dL (8.5-10.1); CARBON DIOXIDE 23.4 mmol/L (21.0-32.0); CREATININE - SERUM 2.8 mg/dL (0.6-1.3); POTASSIUM - SERUM 3.8 mmol/L (3.5-5.1); PROTEIN - SERUM 7.2 g/dL (6.4-8.2)
[2017-07-07 05:40] VITALS: BP 131/57
[2017-07-07 08:33] VITALS: BP 100/52
[2017-07-07] MEDS ORDERED: PLAVIX75 MG PO (10:53)
[2017-07-07] MEDS ORDERED: LIPITOR20 MG PO (10:53)
[2017-07-07] MEDS ORDERED: LOPRESSOR25 MG PO (10:54)
[2017-07-07] MEDS ORDERED: ECOTRIN325 MG PO (10:54)
[2017-07-07 11:41] VITALS: BP 124/94
== END 2017-07-07 16:38 | disposition home or self-care (01) | DRG 247 ==
LOC: OBSVTIME 05:16 → D.M2 05:16
PROVIDERS: Family Medicine; Internal Medicine Cardiovascular Disease; Internal Medicine Nephrology
PROC: B2151ZZ Fluoroscopy of Left Heart using Low Osmolar Contrast (ICD-10-PCS; 2017-07-04)
PROC: 4A023N7 Measurement of Cardiac Sampling and Pressure, Left Heart, Percutaneous Approach (ICD-10-PCS; 2017-07-04)
PROC: B2111ZZ Fluoroscopy of Multiple Coronary Arteries using Low Osmolar Contrast (ICD-10-PCS; principal; 2017-07-04 12:00)
PROC: 027136Z Dilation of Coronary Artery, Two Arteries with Three Drug-eluting Intraluminal Devices, Percutaneous Approach (ICD-10-PCS; 2017-07-05)
PROC: 02C03ZZ Extirpation of Matter from Coronary Artery, One Artery, Percutaneous Approach (ICD-10-PCS; 2017-07-05)
PROC: 04HK33Z Insertion of Infusion Device into Right Femoral Artery, Percutaneous Approach (ICD-10-PCS; 2017-07-05)
DX: I21.4 Non-ST elevation (NSTEMI) myocardial infarction (principal); N18.4 Chronic kidney disease, stage 4 (severe); Z68.43 Body mass index [BMI] 50.0-59.9, adult; N39.0 Urinary tract infection, site not specified; I25.10 Atherosclerotic heart disease of native coronary artery without angina pectoris; I25.5 Ischemic cardiomyopathy; D63.1 Anemia in chronic kidney disease; E11.22 Type 2 diabetes mellitus with diabetic chronic kidney disease; I12.9 Hypertensive chronic kidney disease with stage 1 through stage 4 chronic kidney disease, or unspecified chronic kidney disease; G89.4 Chronic pain syndrome; E66.01 Morbid (severe) obesity due to excess calories; I69.320 Aphasia following cerebral infarction; H40.9 Unspecified glaucoma

== ENCOUNTER → 2017-09-08 10:53 | Outpatient (CLI) | payer MEDICARE ==
[2017-07-04 14:55] VITALS: BMI 50.6
[~2017-09-08 10:53] MED LIST changes: +ECOTRIN325 MG PO; +GLIPIZIDE10 MG PO; +LIPITOR20 MG PO; +LOPRESSOR25 MG PO; +MAG-OX 400 MG400 MG PO; +NEURONTIN 300300 MG PO; +PLAVIX75 MG PO; +XANAX0.25 MG PO
== END | disposition home or self-care (01) ==
LOC: D.NM 10:53
DX: I10 Essential (primary) hypertension (principal); E11.9 Type 2 diabetes mellitus without complications; I50.30 Unspecified diastolic (congestive) heart failure

== ENCOUNTER → 2018-02-02 09:39 | Outpatient (CLI) | payer MEDICARE ==
[2017-07-04 14:55] VITALS: BMI 50.6
--- NOTE | ~2018-02-02 | EC ---
PATIENT:CHELLY DALEY DATE OF SERVICE: 02/02/18 SEX: F MEDICAL RECORD: [id number] DATE OF : 52 LOCATION:D[facility] AGE OF PATIENT: 67 ADMISSION DATE: 02/02/18 REFERRING PHYSICIAN: INTERPRETING PHYSICIAN: GEOVANNA MAGAÑA MD ECHOCARDIOGRAM REPORT ECHO CHARGES 4 ECHO COMPLETE Date: 02/02/18 CLINICAL DIAGNOSIS: HTN/ANGINA/CAD/CARDIOMYOPATHY ECHOCARDIOGRAPHIC MEASUREMENTS (adult normal given) AC root (d.<3.7cm) 3.1 cm LV Septum d (<1.2 cm> 1.3 cm Valve Excursion 2.0 cm LV Septum (systole) 1.6 cm Left Atria (s.<4.0cm> 4.6 cm LVPW d(<1.2cm) 1.3 cm RV (d.<2.3cm) 2.6 cm LVPW (sytole) 2.0 cm LV diastole(<5.6CM) 5.9 cm MV E-F(>70mm/sec) cm LV systole 3.9 cm LVOT Diameter 2.0 cm MV exc.(>10mm) cm Est.ejection fraction (50-75%) % DOPPLER: LVIT cm/sec A 162 cm/sec E 105 cm/sec LA cm/sec RVSP 25.3 mmHg LVOT 106 cm/sec AOP1/2T m/s Asc. Ao 158 cm/sec RVOT 92.0 cm/sec RA cm/sec PA 131 cm/sec AV Gradient Peak 10.0 mmHg AV Mean 5.5 mmHg AV Area 2.4 cm MV Gradient Peak 9.7 mmHg MV Mean 2.6 mmHg MV Area cm COMMENTS: Manager Inventory Management: Joanne BECK Personnel Interviewer: 3 Dr. Palomo TAPE# PACS Pericardial Effusion N DATE OF SERVICE: 02/02/2018 FINDINGS: 1. Left ventricular chamber size is mildly dilated. Left ventricular systolic function is normal. Overall ejection fraction is 55% to 60%. 2. Left atrium is dilated at 4.6 cm. Right atrium and right ventricle chamber sizes are within normal limits. 3. Valvular structures have normal structure and motion. 4. Doppler interrogation reveals mild mitral regurgitation, mild tricuspid regurgitation, no other valvular insufficiency or stenosis. Pulmonary systolic ECHOCARDIOGRAM REPORT [id number] CHELLY DALEY pressure is estimated at 25 mmHg. 5. No evidence of pericardial effusion or left ventricular thrombus. TRANSINT:[id number] Voice Confirmation ID: [id number] DOCUMENT ID: [id number] GEOVANNA MAGAÑA MD CC: [id number] DICTATION DATE: 02/02/18 113 GROUND WATER TECHNICIAN: 02/02/18 1203 [facility] [address] [id number]
== END | disposition home or self-care (01) ==
LOC: D.ECHO 09:30
DX: I10 Essential (primary) hypertension (principal); I25.10 Atherosclerotic heart disease of native coronary artery without angina pectoris; I42.9 Cardiomyopathy, unspecified